=== PATIENT | male | born 1990 | race Two or more races ===

== ENCOUNTER 2024-08-29 14:06 | Emergency (ER) | payer BC, SELFPAY ==
[2024-08-29 14:11] VITALS: BP 159/99; PULSE 71; RESP 19; TEMP 36.9; O2SAT 98
--- NOTE | 2024-08-29 14:36 | XR_ITS ---
Examination: Hand, right 3 views Technique: Hand AP, oblique, lateral 3 views Date and time of exam: August 29, 2024 at 1438 hours INDICATIONS: Injury to the hand today with fifth digit pain FINDINGS: Soft tissue swelling adjacent digit Minute opacities in the soft tissue or on the skin adjacent to the middle phalanx fifth digit No fracture IMPRESSION: Multiple minute opacities in the soft tissue or on this scan adjacent to the middle phalanx fifth digit, clinical correlation advised
--- NOTE | 2024-08-29 15:16 | PD.EDWOUND ---
ED Wound/Laceration-RME/HPI General Chief Complaint: Wound/Laceration Stated Complaint: LAC TO R 5TH DIGIT Time Seen by Provider: 08/29/24 14:21 Source: patient Arrival date/time: 08/29/24 14:06 This is a 34-year-old male who presented to the emergency department with complaints of a laceration to his right fifth digit. 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 Denies full range of motion of hand and digits. Patient did not attempt any interventions or take any OTC medications prior to ED visit. Mode of arrival: ambulatory Limitations: no limitations Related Data Previous Rx's ?Medication ?Instructions ?Recorded cephalexin 500 mg capsule 500 mg PO TID 5 days #15 caps 08/29/24 Allergies Allergy/AdvReac Type Severity Reaction Status Date / Time No Known Allergies Allergy Verified 08/29/24 14:33 Review of Systems Review of Systems Systems Reviewed: All systems reviewed, normal except as documented Narrative Review of Systems: Gen: No fever, no chills, no weight loss EYES: No discharge, no visual changes, no pain HEENT: No ear pain, no congestion, no sore throat PULM: No shortness of breath, no cough, no congestion CV: No chest pain, no dyspnea on exertion, no palpitations GI: No nausea, no vomiting, no diarrhea, no pain, no constipation : No frequency, no urgency,? no dysuria Musc/skel: No joint pain, no back pain Skin: +laceration thumb ED Exam General Limitations: Present no limitations General appearance: Present alert and in no apparent distress Head Head exam: Present atraumatic Eye Eye exam: Present normal appearance, PERRL and EOMI ENT ENT exam: Present normal exam, normal oropharynx and mucous membranes moist Neck Neck exam: Present normal inspection, full ROM and trachea midline Chest Chest inspection: Present normal inspection and symmetric chest wall rise Respiratory Respiratory exam: Present normal lung sounds bilaterally Cardiovascular Cardiovascular exam: Present regular rate, normal rhythm and normal heart sounds Abdominal Exam Abdominal exam: Present soft and normal bowel sounds Extremities Exam Extremities exam: Present full ROM Expanded Upper Extremity Exam Shoulder exam: Present normal inspection Arm exam: Present normal inspection Elbow exam: Present normal inspection Forearm/Wrist exam: Present normal inspection Hand L/R back image: 1. 2 cm laceration stellate and linear. no deep structures identified full range of motion CMS intact Back Exam Back exam: Present normal inspection and full ROM Neurological Exam Neurological exam: Present alert, oriented X3 and CN II-XII intact Psychiatric Psychiatric exam: Present normal affect and normal mood Skin Skin exam: Present warm, dry, intact and normal color Course Quality Measures none Orders Category Date Time Status Wound Care NOW Care 08/29/24 14:36 Completed XR hand comp RT min 3V Stat Exams 08/29/24 14:36 Completed Vital Signs Vital signs: Vital Signs Temperature 98.5 F 08/29/24 14:11 Pulse Rate 71 08/29/24 14:11 Respiratory Rate 19 08/29/24 14:11 Blood Pressure 159/99 H 08/29/24 14:11 Pulse Oximetry (%) 98 08/29/24 14:11 Oxygen Delivery Method Room Air 08/29/24 14:11 Procedures -ED Laceration Laceration 1: Site: hand Side (If applicable): right Size (cm): 2 Description: linear and stellate Depth: simple, single layer Local Anesthetic: lidocaine 1% Amount of anesthesia used (mL): 8 Pre-repair: wound explored and irrigated extensively Skin layer closed with: vicryl Size (cm): 4-0 Number of sutures: 6 Technique: simple, interrupted Wound / Laceration Patient data External records reviewed:: [facility] previous records Clinical information provided by:: patient Social determinants that could affect healthcare access:: none Patient has the following chronic illnesses:: no How is presenting disease/condition affected by chronic disease/condition?: no chronic disease Evaluation data The following diagnostics were reviewed and interpreted by me:: radiology exam(s) Lab and/or radiology exams considered but not ordered:: no Interpretation Summary: Examination: Hand, right 3 views Technique: Hand AP, oblique, lateral 3 views Date and time of exam: August 29, 2024 at 1438 hours INDICATIONS: Injury to the hand today with fifth digit pain FINDINGS: Soft tissue swelling adjacent digit Minute opacities in the soft tissue or on the skin adjacent to the middle phalanx fifth digit No fracture IMPRESSION: Multiple minute opacities in the soft tissue or on this scan adjacent to the middle phalanx fifth digit, clinical correlation advised Medications / Prescriptions Medications or Prescriptions considered but not ordered:: no Medication administrations:: no Consultations Consultation(s) initiated? (list below): No Diagnosis Wound Differential Diagnosis: laceration, abscess, abrasion and avulsion of skin Most likely diagnosis given after review of the tests above:: laceration Admission Indicated Admission indicated?: not indicated Admission Request Was there a request for admission?: No Disposition Plan Disposition Plan: Discharge Discharge Attestation Discharge Attestation: The patient and all family members were given an opportunity to ask questions and understood the discharge instructions. Discharge instructions specifically effects, indications for sooner follow up or return to the emergency department, and the expected course of current diagnosis. Patient condition: Stable Discharge Plan Plan Patient Disposition: HOME (Self Care) Patient condition on transfer: Stable Prescriptions/Referrals Prescriptions/Med Rec: New cephalexin 500 mg capsule 500 mg PO TID 5 Days Qty: 15 0RF Referrals: Casimiro Deutsch MD [Primary Care Provider] - In 1 week Problem List Clinical Impression: Laceration Patient/Caregiver Discharge Instructions Discharge Activity: activity as tolerated Education Materials: ED Laceration, Hand: All Closures Additional Instructions: You had [address] Keep area clean and dry. please follow up with Primary Doctor in 7-10 day for suture removal. Please return to ER if theres is any sign of infection. Please keep wound clean and dry. Print Language: Ukrainian Stand Alone Forms: Aminah Award Info., Patient Portal Info Letter MADHAV/RYAN Supervising Physician MANNY Supervising Physician: Dr Du
== END 2024-08-29 16:40 | disposition home or self-care (01) ==
PROVIDERS: Emergency Provider Emergency Medicine; PCP Family Medicine
DX: S61.216A Laceration without foreign body of right little finger without damage to nail, initial encounter (principal); W29.8XXA Contact with other powered hand tools and household machinery, initial encounter
CPT/HCPCS: 12001; 73130; 99283